=== PATIENT | male | born 1940 | race Caucasian/White ===

== ENCOUNTER → 2017-05-12 | Outpatient (CLI) | payer OTHER ==
[~2017-05-12] MED LIST: ACETAMINOPHEN325 MG PO; ACID CONTROL150 M1 PO; ALBUTEROL0.83 MG/ML NEB; ALLERGY INJECTIONS; ALLERGY RELIEF25 MG PO; AMLODIPINE-VAL1 EAC1 PO; ARTHRITIS PAIN650 M3 PO; ASPIRIN PO; ASPIRIN81 M1 PO; ASPIRIN81 M2 PO; AUGMENTIN PO; BENZONATATE PO; CARDIZEM CD PO; CLOPIDOGREL75 MG PO; COLACE PO; CRESTOR10 MG PO; DIFLUCAN100 MG PO; DIOVAN PO; DUONEB 2.5-0.5 M3 ML NEB; ENABLEX15 MG PO; EXFORGE 10-1601 TAB PO; EXFORGE 5-160 M1 TAB PO; EXFORGE HCT 101 EACH PO; FINASTERIDE5 MG PO; FLAGYL PO; FLOMAX0.4 M1 PO; FLOMAX0.4 MG PO; FLONASE 0.05% N16 G1 INH; ISOSORBIDE DINI30 MG PO; LASIX PO; LASIX20 MG PO; LEVAQUIN750 MG PO; LOPRESSOR PO; LORTAB 10-5001 EACH PO; METOPROLOL SUCC50 MG PO; METOPROLOL TART25 MG PO; MOTRIN400 MG PO; NAPROXEN PO; OMEPRAZOLE40 M1 PO; OXYGEN; PREDNISONE PO; PREDNISONE10 MG PO; PREVACID PO; PREVACID SOLUTA30 MG PO; PROBENECID500 M1 PO; PROBENECID500 MG PO; PROCARDIA10 MG PO; PROTONIX PO; SPIRIVA18 MCG INH; SPIRIVA18 MCG PO; SYMBICORT INH; TMP-POLYMYXIN B10 ML OP; TOPROL XL 50 MG50 M1 PO; TYLENOL325 M1 PO; VESICARE PO; VESICARE5 MG PO; VIBRAMYCIN100 M1 PO; VOLTAREN75 MG PO; ZETIA PO; ZOCOR PO; ZYRTEC PO; [UNRECOGNIZED DRUG - OTHER] PO; [UNRECOGNIZED DRUG - REMARK]; [UNRECOGNIZED DRUG - REMARK] PO
--- NOTE | ~2017-05-12 | US6 ---
[facility] A Service of [facility] & [facility] RADIOLOGY TEXT RESULTS PATIENT: CESAR OROPEZA LOCATION: US : 41 UNIT #: [id number] AGE: [address]: Juan Gomez MD SEX: M ORDER DR: [id number] [facility] [address] [place], [place] [address] [id number] O MR#: [id number] Acc #: [id number] NAME: CESAR OROPEZA. : 1940 SEX: M STUDY DATE/TIME: 05/12/2017 7:18 UNIT: CGUS ROOM: STUDY DESCRIPTION: US Abdominal Limited Attending Physician: Juan Gomez Jr., M.D. Referring Physician: Juan Gomez Jr., M.D. Ordering Physician: Juan Gomez Jr., M.D. Primary Care Physician: Maged Cortez Jr., M.D. MEDICAL IMAGING REPORT This report is preliminary unless electronic signature is present EXAM Ultrasound abdominal limited, 05/12/2017. HISTORY Pain. Abdomen pain for 6 months. No abdominal surgery. No diabetes, myocardial infarction, or CVA. History of stent in heart, hypertension. TECHNIQUE Real-time ultrasonography of the right upper quadrant was performed. FINDINGS Brickmason Apprentice indicates the study was technically limited secondary to patient body habitus. Pancreas largely obscured by bowel gas artifact. The liver poorly visualized due to artifact related to ribs, bowel gas, and pulmonary parenchyma. The portal vein is patent with normal direction of flow. The visualized portions of the liver show no focal abnormality. Liver measures 14.7 cm in greatest length. The echotexture is slightly heterogeneous. The gallbladder is normal in volume. No pericholecystic fluid. No gallstones are seen. Gallbladder wall measures 2.8 mm in thickness. No pathologic wall thickening suggested. The common bile duct measures about 3.8 mm in diameter. On some images, there is ill-defined echogenicity within the visualized common bile duct. This is not consistent on all available images. I favor this is some form of artifact; however, nonobstructing choledocholithiasis or intraluminal nodule of some type is not entirely excluded on the basis of the images provided. Of note, there is no intra or extrahepatic biliary ductal dilatation. Clarification of this finding with CT examination, MRCP, or repeat ultrasound recommended. The right kidney measures 11.06 cm in greatest length. There is no hydronephrosis or nephrolithiasis. No cystic or solid mass lesion and no perinephric fluid collection. IMPRESSION 1. Gallbladder normal in appearance. [facility] A Service of [facility] RADIOLOGY TEXT RESULTS PATIENT: CESAR OROPEZA LOCATION: [facility] : 41 UNIT #: [id number] AGE: [address]: Juan Gomez MD SEX: M ORDER DR: 2. There is no intra or extrahepatic biliary ductal dilatation. The common duct measures 3.8 mm in diameter. On some images, there is an ill-defined echogenic focus which appears to be within the common bile duct. This is inconsistently visualized. I favor that this is some form of artifact; however, I cannot strictly exclude choledocholithiasis or some form of intraluminal ductal nodule. Further assessment with CT examination, MRCP, or perhaps repeat ultrasound recommended. 3. Portions of liver obscured by artifact from ribs, bowel gas, and pulmonary parenchyma. No focal hepatic parenchymal abnormality is seen. Liver appears normal in overall contour and size. 4. Pancreas largely obscured by bowel gas artifact. If pancreas is of acute clinical concern it could be further assessed with CT. 5. Right kidney normal. 6. No abnormal fluid collections. Dictated by... Maged Shaffer M.D. THIS IS AN ELECTRONICALLY VERIFIED REPORT Maged Shaffer M.D. at 05/12/2017 5:50 PM Benjie TD: 05/12/2017 15:08 JOB #: [id number] MEDICAL IMAGING REPORT Page 1 of 1 COPY
--- NOTE | ~2017-05-12 | NM22 ---
[facility] A Service of [facility] & [facility] RADIOLOGY TEXT RESULTS PATIENT: CESAR OROPEZA LOCATION: US : 41 UNIT #: [id number] AGE: [address]: Juan Gomez MD SEX: M ORDER DR: [id number] [place] [id number] [facility] [place], [place] [address] [id number] O MR#: [id number] Acc #: [id number] NAME: CESAR OROPEZA. : 1940 SEX: M STUDY DATE/TIME: 05/12/2017 7:54 UNIT: CGUS ROOM: STUDY DESCRIPTION: LEONID Hepatobiliary W GB Pharm Attending Physician: Juan Gomez Jr., M.D. Referring Physician: Juan Gomez Jr., M.D. Ordering Physician: Juan Gomez Jr., M.D. Primary Care Physician: Maged Cortez Jr., M.D. MEDICAL IMAGING REPORT This report is preliminary unless electronic signature is present EXAM Radionuclide biliary scan, 05/12/2017 HISTORY Pain. Bloating, epigastric pain radiates to the right upper quadrant, left upper quadrant excess gas, belching, constipation, gastroesophageal reflux disease. No history of abdominal surgery. Symptoms began about 4 months ago. Following intravenous administration 6 mCi technetium 99m Choletec, static images of the abdomen were obtained at 15-minute intervals over 60 minutes. The patient then received 1.7 mcg Kinevac by 30-minute intravenous infusion. Images of the abdomen obtained before after infusion. Region of interest drawn around gallbladder and gallbladder ejection fraction calculated. Homogeneous distribution of radiotracer seen throughout the liver at 15 minutes post administration. Radiotracer in the common bile duct and duodenum at 15 minutes post administration. Radiotracer seen within gallbladder at 30 minutes post administration. During initial hour of examination radiotracer continues to accumulate in the gallbladder and small bowel. There is no evidence of cystic duct obstruction or acute cholecystitis. 30-minute gallbladder ejection fraction with Kinevac infusion is 77.2%. Normal is greater than or equal to 30%. Dictated by... Maged Shaffer M.D. [facility] A Service of [facility] & [facility] RADIOLOGY TEXT RESULTS PATIENT: CESAR OROPEZA LOCATION: [facility] #: [id number] : 41 UNIT #: [id number] AGE: [address]: Juan Gomez MD SEX: M ORDER DR: THIS IS AN ELECTRONICALLY VERIFIED REPORT Maged Shaffer M.D. at 05/14/2017 11:34 AM Ronaldo TD: 05/12/2017 23:07 JOB #: [id number] MEDICAL IMAGING REPORT Page 1 of 1 COPY
== END | disposition home or self-care (01) ==
LOC: CGUS 06:47
DX: K21.9 Gastro-esophageal reflux disease without esophagitis (principal); R14.0 Abdominal distension (gaseous)
CPT/HCPCS: 76705; 78227; A9537; J2805

== ENCOUNTER → 2017-06-12 | Day surgery (SDC) | payer OTHER ==
--- NOTE | ~2017-06-12 | OR ---
Unit #: [id number] #: [id number] Patient: CESAR OROPEZA [id number] [address] [place], [place] [address] [id number] O MR#: [id number] NAME: CESAR OROPEZA. ROOM: Date of Procedure: 06/12/2017 Admission Date: 06/12/2017 Surgeon: Savage Pineda M.D. : 1940 Attending Physician: Juan Gomez Jr., M.D. Primary Care Physician: Maged Cortez Jr., M.D. OPERATIVE REPORT PREOPERATIVE DIAGNOSIS Upper abdominal pain. POSTOPERATIVE DIAGNOSIS Upper abdominal pain. PROCEDURES PERFORMED 1. Esophagogastroduodenoscopy. 2. Biopsy of antrum for Helicobacter pylori testing. 3. Colonoscopy to cecum. ANESTHESIA Monitored anesthesia care. FINDINGS The patient was found to have an upper endoscopy, a large hiatal hernia as well as mild gastritis. 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 SPECIMENS Sent to pathology. COMPLICATIONS None apparent. CONDITION The patient tolerated the procedure well. INDICATIONS FOR PROCEDURE The patient is a 77-year-old white male, who presents at this time with mid and upper abdominal pain. He had a CT scan of the abdomen and pelvis that was normal. An ultrasound of the gallbladder showed no abnormality. HIDA scan revealed a 77% ejection fraction. He presents at this time for evaluation by upper as well as lower endoscopy. He has a history of colonic polyps. DESCRIPTION OF PROCEDURE After obtaining informed consent, the patient was brought to the endoscopy suite and after adequate monitored anesthesia care, had the endoscope placed through the mouth into the upper esophagus under direct vision. It was advanced to the second and third portion of the duodenum without difficulty with lumen always in view. The second and third portion were Unit #: [id number] #: [id number] Patient: CESAR OROPEZA normal as was the duodenal bulb. The pylorus opened normally. There was some mild distal gastritis present and a biopsy was obtained for Helicobacter pylori testing. On retroflexion back to the GE junction, the patient was found to have a very large hiatal hernia. No other abnormalities were found in the proximal third, middle third, or incisura. On pulling back above the GE junction, the hiatal hernia was again visualized. It appeared that approximately 1/4 to 1/3 of the stomach was above the diaphragm. There was no stenosis, stricture, or neoplasm seen in the area of the GE junction. There is no distal esophagitis. There was some tortuosity of the esophagus, but no other abnormalities were seen. The remaining portion of the esophagus was otherwise normal and the laryngeal structures were grossly normal as viewed from above. At this point in time, the colonoscope was placed through the anus and advanced to the level of the cecum without difficulty with the lumen always in view. The cecum was normal as was the ileocecal valve. 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 Other than this, there was no abnormality seen in the ascending colon, hepatic flexure, transverse colon, splenic flexure, descending colon, sigmoid colon, or rectum. On retroflexing in the rectum to the anorectal junction, the patient was found to have some mild internal hemorrhoids. The scope was removed without difficulty. The patient tolerated the procedure well and went from the endoscopy suite to the recovery area in stable condition. RECOMMENDATIONS Gastroesophageal reflux sheet given. Diverticular sheet given. High-fiber diet, lots of liquids, tucks or wipes p.r.n. Call Dr. Gomez on Friday to discuss results and future treatment plans. Dictated by... Jessi Srinivasan/jayne TD: 06/12/2017 17:25 JOB #: [id number] CC: Maged Cortez Jr, M.D. [facility] OPERATIVE REPORT Page 1 of 1 X Savage Pineda MD X PROCEDURE OPERATIVE NOTE
== END | disposition home or self-care (01) ==
LOC: COPS 11:28
DX: K57.30 Diverticulosis of large intestine without perforation or abscess without bleeding (principal); K44.9 Diaphragmatic hernia without obstruction or gangrene; K29.70 Gastritis, unspecified, without bleeding; K64.8 Other hemorrhoids; I12.9 Hypertensive chronic kidney disease with stage 1 through stage 4 chronic kidney disease, or unspecified chronic kidney disease; N18.2 Chronic kidney disease, stage 2 (mild); N40.0 Benign prostatic hyperplasia without lower urinary tract symptoms; J44.9 Chronic obstructive pulmonary disease, unspecified; I25.10 Atherosclerotic heart disease of native coronary artery without angina pectoris; K21.9 Gastro-esophageal reflux disease without esophagitis; M19.90 Unspecified osteoarthritis, unspecified site; E78.5 Hyperlipidemia, unspecified; E78.00 Pure hypercholesterolemia, unspecified; G47.30 Sleep apnea, unspecified; Z87.891 Personal history of nicotine dependence; Z79.02 Long term (current) use of antithrombotics/antiplatelets; Z79.82 Long term (current) use of aspirin; Z79.899 Other long term (current) drug therapy; Z98.890 Other specified postprocedural states; Z96.642 Presence of left artificial hip joint; Z95.5 Presence of coronary angioplasty implant and graft
CPT/HCPCS: 87077